=== PATIENT | male | born 1985 | race African-American/Black ===

== ENCOUNTER 2021-12-19 18:28 | Emergency (ER) | payer OTHER ==
[~2021-12-19] VITALS: Ht 188 cm; Wt 100.0 kg
[2021-12-19 18:41] VITALS: BP 112/80
[2021-12-19 18:46] VITALS: BP 112/68
[2021-12-19 19:00] VITALS: BP 114/78
[2021-12-19 19:16] VITALS: BP 108/76
[2021-12-19 19:31] VITALS: BP 107/79
[2021-12-19] MEDS ORDERED: AMOXICILLIN500 MG PO (19:58)
[2021-12-19 20:01] VITALS: BP 118/82
== END 2021-12-19 20:06 | DRG 605 ==
LOC: ED 18:28
DX: S61.412A Laceration without foreign body of left hand, initial encounter (principal); X99.1XXA Assault by knife, initial encounter; Y92.149 Unspecified place in prison as the place of occurrence of the external cause